=== PATIENT | female | born 1950 | race American Indian/Alaskan Native ===

== ENCOUNTER 2016-09-19 13:02 | Outpatient (CLI) | payer OTHER | END 2016-09-19 13:03 | disposition home or self-care (01) | LOC: ECHO 13:02 | DX: C50.919 Malignant neoplasm of unspecified site of unspecified female breast (principal) | CPT/HCPCS: 93306 ==

== ENCOUNTER 2017-01-15 10:48 | Outpatient (CLI) | payer OTHER | END 2017-01-15 10:49 | disposition home or self-care (01) | LOC: ECHO 10:48 | DX: Z51.11 Encounter for antineoplastic chemotherapy (principal); I08.1 Rheumatic disorders of both mitral and tricuspid valves; I27.2 Other secondary pulmonary hypertension; C50.919 Malignant neoplasm of unspecified site of unspecified female breast | CPT/HCPCS: 93306 ==

== ENCOUNTER 2017-04-18 06:44 | Day surgery (SDC) | payer OTHER ==
[2017-04-18 08:44] LABS: Hematocrit 22.7 % (30.3-42.9); Hemoglobin 7.1 gm/dl (10.1-14.3); Mean Corpuscular HGB Conc 31 % (30-34); Mean Corpuscular Hemoglobin 23 pg (28-32); Mean Corpuscular Volume 73 fl (79-97); Platelet Count 379 K/mm3 (140-440); Red Blood Count 3.09 M/mm3 (3.65-5.03); Red Cell Distribution Width 22.4 % (13.2-15.2); White Blood Count 4.7 K/mm3 (4.5-11.0)
[2017-04-18 08:45] LABS: Basophils % (Auto) 1.3 % (0.0-1.8); Diff Status Complete
[2017-04-18 08:47] LABS: INR 1.07 (0.87-1.13)
[2017-04-18 08:52] LABS: Partial Thromboplastin Time 80.6 Sec. (24.2-36.6)
[2017-04-18] MEDS ORDERED: SUBLIMAZE IV ONE (09:30)
[2017-04-18] MEDS ORDERED: VERSED IV ONE (09:30)
--- NOTE | 2017-04-18 10:41 | Cat Scan Report ---
CT BONE MARROW ASPIRATION History: Breast cancer, anemia. Description of procedure: Informed consent was obtained. Sterile technique was utilized. 1% lidocaine for skin anesthesia. Moderate sedation was accomplished with Versed and fentanyl. The patient was sedated for 15 minutes. Independent cardiorespiratory monitoring by RN. Intraobserver time of [address] guidance, a 10-gauge introducer needle was advanced into the right posterior iliac bone. Four bone marrow aspirations and one 11-gauge bone core were obtained. Pathology was present to handle the samples. No complications. Impression: Successful CT-guided bone marrow aspiration and biopsy.
[2017-04-18] MEDS ORDERED: FLUSH HEPARIN IV ONE (10:57)
[2017-04-18 11:17] LABS: Basophils % (Manual) 0 % (0.0-1.8); Blastocytes % (Manual) 0 %
[2017-04-18 11:18] LABS: Anisocytosis 2+; Hypochromasia 2+; Platelet Estimate Cons
[2017-04-18 11:31] VITALS: BP 110/61
[2017-05-02 14:30] LABS: CYTOMETRY FIRST MARKER SCANNED INTO MED REC; FLOW CYTOMETRY >16 SCANNED INTO MED REC
== END 2017-04-18 11:30 | disposition home or self-care (01) ==
LOC: CATHLABREC 06:44 → EDSTATUS 08:30 → CATHLABREC 11:30
DX: D50.9 Iron deficiency anemia, unspecified (principal); C50.919 Malignant neoplasm of unspecified site of unspecified female breast; Z98.51 Tubal ligation status; Z90.711 Acquired absence of uterus with remaining cervical stump; Z79.01 Long term (current) use of anticoagulants
CPT/HCPCS: 36415; 38221; 77012; 85007; 85025; 85097; 85610; 85730; 88184; 88185; 88230; 88291; 88305; 88342; 99156; G0364; J1642; J2250; J3010; 88161; 88311; 88313

== ENCOUNTER 2017-04-24 09:03 | Outpatient (CLI) | payer OTHER | END 2017-04-24 09:04 | disposition home or self-care (01) | LOC: ECHO 09:03 | DX: I34.0 Nonrheumatic mitral (valve) insufficiency (principal); I27.20 Pulmonary hypertension, unspecified; I51.7 Cardiomegaly; I31.3 Pericardial effusion (noninflammatory); C50.919 Malignant neoplasm of unspecified site of unspecified female breast | CPT/HCPCS: 93306 ==

== ENCOUNTER 2017-07-23 11:32 | Outpatient (CLI) | payer OTHER ==
[2017-07-23 12:37] LABS: Blood Urea Nitrogen 23 mg/dL (7-17)
--- NOTE | 2017-07-24 10:26 | Nuclear Medicine Report ---
BONE SCAN: History: Right breast cancer, initial staging. Comparison: CT chest and abdomen performed the same day. No previous bone scan at this facility. There are multiple areas of abnormal increased radiotracer uptake throughout the thoracic spine, lumbar spine, bilateral ribs, bilateral iliac bones and superior sacrum. These correlate with numerous sclerotic bony lesions seen on CT performed the same day. IMPRESSION: Numerous metastatic lesions are identified throughout the spine, bilateral ribs and pelvis.
--- NOTE | 2017-07-24 11:23 | Cat Scan Report ---
CT CHEST WITH CONTRAST: HISTORY: Breast cancer. COMPARISON: No previous CT at this facility. TECHNIQUE: Helical CT in 1.25mm intervals following IV contrast. Sagittal and coronal reformatted images. FINDINGS: Chest wall: There is diffuse skin thickening throughout both breasts which may be secondary to dermal involvement or radiation changes. There may be focal ulceration in the superior left breast. No abscess. Thyroid gland: 1.5 cm cyst in the right thyroid lobe. No obvious mass or adenopathy. Tracheobronchial tree: Normal. Esophagus: Normal. Heart: Normal. Pericardium: Trace pericardial effusion. No obvious pericardial nodularity or calcification. Mediastinum: No mediastinal mass or bulky mediastinal adenopathy. Lung Cornelius: There are increased interstitial markings throughout both lungs. There is a large area of subpleural consolidation in the lateral right lower lobe and right middle lobe. This appears to represent round atelectasis or chronic atelectasis. No discrete pulmonary nodule or mass. Pleural Spaces: There is a small but complex right pleural effusion with right pleural thickening. No left pleural effusion. No pneumothorax. Musculoskeletal: There are numerous sclerotic bony lesions throughout the thoracic spine, sternum, bilateral ribs, bilateral scapula and bilateral proximal humeri. IMPRESSION: Numerous bony lesions consistent with metastatic disease. Complex right pleural effusion or thickening as described, this may be secondary to neoplasm or radiation changes. Chronic interstitial changes in both lungs with chronic consolidation in the lateral right lung base but no obvious pulmonary nodular mass.
--- NOTE | 2017-07-24 11:28 | Cat Scan Report ---
CT ABDOMEN WITH CONTRAST: HISTORY: Breast cancer. COMPARISON: No previous CT at this facility. TECHNIQUE: Helical CT in 1.25mm intervals following IV contrast. Sagittal and coronal reconstructions. FINDINGS: Liver: Normal. Biliary system: Normal. Pancreas: Normal. Spleen: Normal. Kidneys/ureters/bladder: 3.8 x 2.7 cm simple cyst is noted in the mid left kidney. The kidneys and visualized proximal collecting systems are unremarkable otherwise. Adrenal glands: Normal. Aorta: Normal. Intestines: There is mild fecal retention. No evidence for mass, obstruction or focal inflammation the visualized GI system. Appendix: Not visualized. Ascites: None. Adenopathy: None. Musculoskeletal: Numerous sclerotic bony lesions are identified throughout the lower ribs, all lumbar spine and superior pelvic bones. IMPRESSION: Multiple sclerotic bony lesions consistent with metastatic disease. Unremarkable abdominal viscera. No visceral mass or adenopathy is identified.
== END 2017-07-23 11:33 | disposition home or self-care (01) ==
LOC: NM 11:32
DX: C50.911 Malignant neoplasm of unspecified site of right female breast (principal); N28.1 Cyst of kidney, acquired; I07.1 Rheumatic tricuspid insufficiency; J90 Pleural effusion, not elsewhere classified; K59.00 Constipation, unspecified; M89.9 Disorder of bone, unspecified; E04.1 Nontoxic single thyroid nodule; I72.9 Aneurysm of unspecified site
CPT/HCPCS: 36415; 71260; 74160; 78306; 82565; 84520; 93306; A9503; Q9967

== ENCOUNTER 2017-08-13 08:35 | Outpatient (CLI) | payer OTHER ==
--- NOTE | 2017-08-13 13:50 | Mammography Report ---
BILATERAL DIGITAL DIAGNOSTIC MAMMOGRAM with CAD and BILATERAL BREAST ULTRASOUND: 08/13/17 08:35:00 CLINICAL: Stage IV breast cancer COMPARISON:No recent breast imaging. Comparison mammograms are available from January 2008. FINDINGS: The right breast is shrunken with a central irregular mass which is new compared to the previous mammogram. The mass measures approximately 8.3 x 4.8 x 5.8 cm there are associated suspicious calcifications. The skin of the right breast is thickened. There is a retraction of the right nipple.The left breast is heterogeneously dense. Asymmetries on both views of the left breast is demonstrate satisfactory effacement with spot compression. Benign calcifications of the left breast. Ultrasound of the right breast (including all four quadrants and the retroareolar area) was performed and demonstrated marked edema of the breast with skin thickening and attenuation of the sound. An irregular retroareolar mass at 2 o'clock 4 cm from the nipple measures 3.7 x 1.3 x 2.9 cm. A solid irregular hypoechoic mass at 10 o'clock 7 cm from the nipple measures 9 x 5 x 6 mm. Ultrasound of the right axilla demonstrated no suspicious lymph nodes. Ultrasound of the left breast (including all four quadrants and the retroareolar area) was performed. An irregular solid hypoechoic mass at 12 o'clock 5 cm from the nipple measures 7 x 7 x 4 mm. A suspicious lymph node at 1 o'clock 10 cm from the nipple measures 7 x 7 x 7 mm. Several left axillary lymph nodes are smaller but have minimal central fat. IMPRESSION: 1. A 5-8 cm mass of the right breast with nipple retraction and skin thickening is suspicious for recurrent breast cancer.2. A suspicious 7 mm left breast mass at 12 o'clock 5 cm from the nipple and several suspicious left intramammary lymph nodes. BI-RADS CATEGORY: 6--Known Cancer ACR BI-RADS MAMMOGRAPHIC CODES: 0 = Needs additional imaging evaluation; 1 = Negative; 2 = Benign; 3 = Probably benign; 4 = Suspicious; 5 = Malignant; 6 = Known biopsy-proven malignancy COMMENT: 1. Dense breast tissue, i.e., adenosis, fibrocystic changes, etc., may obscure an underlying neoplasm. 2. Approximately 10% of cancers are not detected with mammography. 3. A negative mammography report should not delay biopsy if a clinically suspicious mass is present. COMMENT: Patient follow-up letters are generated by our [employer] application.
--- NOTE | 2017-08-13 13:57 | Ultrasound Report ---
BILATERAL DIGITAL DIAGNOSTIC MAMMOGRAM with CAD and BILATERAL BREAST ULTRASOUND: 08/13/17 08:35:00 CLINICAL: Stage IV breast cancer COMPARISON:No recent breast imaging. Comparison mammograms are available from January 2008. FINDINGS: The right breast is shrunken with a central irregular mass which is new compared to the previous mammogram. The mass measures approximately 8.3 x 4.8 x 5.8 cm and there are associated suspicious calcifications. The skin of the right breast is thickened. There is a retraction of the right nipple.The left breast is heterogeneously dense. Asymmetries on both views of the left breast is demonstrate satisfactory effacement with spot compression. Benign calcifications of the left breast. Ultrasound of the right breast (including all four quadrants and the retroareolar area) was performed and demonstrated marked edema of the breast with skin thickening and attenuation of the sound. An irregular retroareolar mass at 2 o'clock 4 cm from the nipple measures 3.7 x 1.3 x 2.9 cm. A solid irregular hypoechoic mass at 10 o'clock 7 cm from the nipple measures 9 x 5 x 6 mm. Ultrasound of the right axilla demonstrated no suspicious lymph nodes. Ultrasound of the left breast (including all four quadrants and the retroareolar area) was performed. An irregular solid hypoechoic mass at 12 o'clock 5 cm from the nipple measures 7 x 7 x 4 mm. A suspicious lymph node at 1 o'clock 10 cm from the nipple measures 7 x 7 x 7 mm. Several left axillary lymph nodes are smaller but have minimal central fat. IMPRESSION: 1. A 5-8 cm mass of the right breast with nipple retraction and skin thickening is suspicious for either a primary or recurrent breast cancer. 2. A suspicious 7 mm left breast mass at 12 o'clock 5 cm from the nipple and several suspicious left intramammary lymph nodes. BI-RADS CATEGORY: 6--Known Cancer
== END 2017-08-13 08:36 | disposition home or self-care (01) ==
LOC: MAMMO 08:35
DX: C50.911 Malignant neoplasm of unspecified site of right female breast (principal); N64.89 Other specified disorders of breast; I10 Essential (primary) hypertension; D64.9 Anemia, unspecified
CPT/HCPCS: 77066

== ENCOUNTER 2017-11-05 11:13 | Outpatient (CLI) | payer OTHER ==
--- NOTE | 2017-11-05 13:42 | Cat Scan Report ---
CT NECK WITHOUT CONTRAST: HISTORY: Right neck mass, lymphadenopathy. TECHNIQUE: Helical CT without IV contrast. Sagittal and coronal reformatted images. FINDINGS: A marker is placed in the lateral right neck. Underlying this marker, there is a 7.4 mm lymph node. No bulky cervical adenopathy is identified. The parotid and submandibular glands are normal. The carotid sheaths are intact. There is no evidence of adenopathy within the neck. The thyroid gland is normal. The glottic structures are normal. The airway is patent. Strap musculature is unremarkable. Hyoid bone and thyroid cartilage are intact. 2.0 cm right thyroid lobe nodule is identified which is unchanged and CT chest dated 07/23/17. There is moderate multilevel cervical spondylosis. There are multiple sclerotic bony lesions throughout the cervical spine, medial clavicles and visualized sternum. IMPRESSION: A 7.4 mm lymph node is identified underlying a marker in the right side of the neck. No pathologic cervical adenopathy is detected. Multiple sclerotic bony lesions consistent with metastasis
== END 2017-11-05 11:14 | disposition home or self-care (01) ==
LOC: CT 11:13
DX: M47.892 Other spondylosis, cervical region (principal); M89.8X8 Other specified disorders of bone, other site; D64.9 Anemia, unspecified; I10 Essential (primary) hypertension; Z98.51 Tubal ligation status; Z90.710 Acquired absence of both cervix and uterus
CPT/HCPCS: 70490

== ENCOUNTER 2018-01-01 08:12 | Outpatient (CLI) | payer MEDICARE ==
--- NOTE | 2018-01-03 10:04 | Magnetic Resonance Report ---
BILATERAL BREAST MRI WITHOUT AND WITH CONTRAST: 01/01/18 08:12:00 CLINICAL: Right breast cancer with suspected recurrence. COMPARISON:Bilateral diagnostic mammogram and bilateral breast ultrasound 08/13/17. TECHNIQUE: Axial 1.0-mm T1 without, axial high resolution 2.0-mm T2 and axial 1.0-mm dynamic Vibrant high-resolution postcontrast T1 fat saturation sequences on a 1.5 Emma magnet. The examination was performed with an 8 channel dedicated [place] breast coil. Post processing with CAD and subtraction was performed on an [employer] workstation. 20 cc of Multihance was injected via a left [id number] for the contrast portion of the exam. Consent was obtained prior to the administration of the contrast. FINDINGS: Despite an apparent successful injection of IV contrast via the infusion port, no enhancement is identified within the heart or the breasts. No apparent extravasation of contrast. Right: Pronounced skin thickening of the breast is greatest in the lateral aspect of the breast and measures approximately 1 cm. The thickened skin is contiguous to an irregular lateral mass measuring approximately 8 x 2 x 3.6 cm. The right breast is shrunken compared to the left. Moderate diffuse edema of the right breast on T2. No suspicious right axillary or right internal mammary lymph nodes. Left: Mild nonspecific skin thickening of the breast and moderate diffuse edema of the breasts on T2. No distinct mass. No suspicious left axillary or left internal mammary lymph nodes. IMPRESSION: 1. Suspicious skin thickening of the right breast and a suspicious 8 cm mass of the lateral breast. 2. Bilateral nonspecific diffuse breast edema. 3. This is a very limited examination without adequate contrast enhancement. Recommend repeat examination. If adequate IV access cannot be obtained, recommend CTPET to evaluate for tumor. BI-RADS 0 -- Needs Additional Imaging
== END 2018-01-01 08:13 | disposition home or self-care (01) ==
LOC: SPVIMAG 08:12
PROVIDERS: ATTEND Surgery
DX: C50.411 Malignant neoplasm of upper-outer quadrant of right female breast (principal); N64.89 Other specified disorders of breast
CPT/HCPCS: A9577; C8908; 77059

== ENCOUNTER 2018-01-02 10:08 | Outpatient (CLI) | payer MEDICARE | END 2018-01-02 10:09 | disposition home or self-care (01) | LOC: ECHO 10:08 | PROVIDERS: ATTEND Internal Medicine Hematology & Oncology | DX: I34.0 Nonrheumatic mitral (valve) insufficiency (principal); I07.1 Rheumatic tricuspid insufficiency; I31.3 Pericardial effusion (noninflammatory); I10 Essential (primary) hypertension; M10.9 Gout, unspecified; Z88.0 Allergy status to penicillin; Z88.8 Allergy status to other drugs, medicaments and biological substances; Z90.710 Acquired absence of both cervix and uterus | CPT/HCPCS: 93306 ==

== ENCOUNTER 2018-06-06 06:30 | Outpatient (CLI) | payer MEDICARE ==
--- NOTE | 2018-06-06 10:59 | PET Report ---
PET/CT:06/06/18 06:30:00 CLINICAL: Breast cancer restaging. RADIOPHARMACEUTICAL: 12.0mCi F18-FDG. COMPARISON: 03/21/18 PET/CT TECHNIQUE- Following intravenous injection of F-18 FDG and an approximately 60 minute uptake period, CT and PET images from the mid skull to the upper thighs were acquired with the patient in the fasted state. No contrast was administered. The CT protocol used for this PET CT study is designed for attenuation correction and anatomic localization of PET abnormalities. This tunnel kiln operator CT is not desired to produce and cannot replace, ntiyx-mf-ibv-art diagnostic CT scans with specific imaging protocols for different body parts and indications. Plasma glucose at the time of this test: 81g/dl. The standardized uptake values (SUV) are normalized to patient body weight and indicate the highest activity concentration (SUV max) in a given disease site. FINDINGS: Brain--Physiologic FDG uptake in the visualized regions of the brain. Neck--Physiologic FDG uptake in mucosal structures. No mass or lymphadenopathy. No right supraclavicular lymphadenopathy. Chest--Physiologic FDG uptake in mediastinal blood pool and myocardium. Stable small pericardial effusion. Stable non-FDG avid skin thickening of the right breast and non-FDG opacities of the right breast. Lungs--No abnormal uptake. No pulmonary nodule or mass. Stable bilateral multilobar interstitial lung disease. Pleura/pericardium--No abnormal uptake. Stable non-FDG avid right pleural thickening. No pleural effusion. Thoracic nodes--No abnormal uptake. Hepatobiliary--No abnormal uptake. Liver background SUV mean, as a reference for comparing FDG studies, is 4.0 compared to 3.5 on the last exam. No liver mass. Spleen--No abnormal uptake. Pancreas--No abnormal uptake. Adrenal Glands--No abnormal uptake. Kidneys/Ureters/Bladder--No abnormal uptake. Abdominopelvic Nodes--No abnormal uptake. Bowel/Peritoneum/Mesentery--No abnormal uptake. Pelvic organs--No abnormal uptake. Bones/Soft Tissues--No abnormal uptake. Stable extensive sclerotic skeletal lesions involving the spine, sternum, ribs, right humerus, and bilateral pelvic bones. No new bone lesions. IMPRESSION- Stable non-FDG avid disease.
== END 2018-06-06 06:31 | disposition home or self-care (01) ==
LOC: PET 06:30
PROVIDERS: ATTEND Internal Medicine Hematology & Oncology
DX: C50.911 Malignant neoplasm of unspecified site of right female breast (principal); Z88.4 Allergy status to anesthetic agent; Z88.8 Allergy status to other drugs, medicaments and biological substances
CPT/HCPCS: 78815; 82962; A9552

== ENCOUNTER 2018-08-29 09:32 | Outpatient (CLI) | payer MEDICARE ==
--- NOTE | 2018-09-03 09:18 | PET Report ---
PET/CT:08/29/18 09:32:00 CLINICAL: Breast cancer restaging. RADIOPHARMACEUTICAL: 14.311mCi F18-FDG. COMPARISON: 06/06/18 PET/CT TECHNIQUE- Following intravenous injection of F-18 FDG and an approximately 60 minute uptake period, CT and PET images from the mid skull to the upper thighs were acquired with the patient in the fasted state. No contrast was administered. The CT protocol used for this PET CT study is designed for attenuation correction and anatomic localization of PET abnormalities. This energy director CT is not desired to produce and cannot replace, rbqsv-ja-jec-art diagnostic CT scans with specific imaging protocols for different body parts and indications. Plasma glucose at the time of this test: 76g/dl. The standardized uptake values (SUV) are normalized to patient body weight and indicate the highest activity concentration (SUV max) in a given disease site. FINDINGS: Brain--Physiologic FDG uptake in the visualized regions of the brain. Neck--Physiologic FDG uptake in mucosal structures. No mass or lymphadenopathy is. Chest--Physiologic FDG uptake in mediastinal blood pool and myocardium. Stable non-FDG avid skin thickening of the right breast and non-FDG avid masses of the right breast. Lungs--No abnormal uptake. No pulmonary nodule or mass. Pleura/pericardium--No abnormal uptake. Stable non-FDG evident right pleural thickening and possible small pleural effusion. Thoracic nodes--No abnormal uptake. Hepatobiliary--No abnormal uptake. Liver background SUV mean, as a reference for comparing FDG studies, is 3.7 compared to 4.3 on the last exam. No liver mass. Spleen--No abnormal uptake. Pancreas--No abnormal uptake. Adrenal Glands--No abnormal uptake. Kidneys/Ureters/Bladder--No abnormal uptake. Abdominopelvic Nodes--No abnormal uptake. Bowel/Peritoneum/Mesentery--No abnormal uptake. Pelvic organs--No abnormal uptake. Bones/Soft Tissues--No abnormal uptake. Stable extensive sclerotic skeletal lesions involving the spine, sternum, ribs, right humerus and bilateral pelvic bones. No new lesions. IMPRESSION- Stable non-FDG avid disease.
== END 2018-08-29 09:33 | disposition home or self-care (01) ==
LOC: PET 09:32
PROVIDERS: ATTEND Internal Medicine Hematology & Oncology
DX: C50.911 Malignant neoplasm of unspecified site of right female breast (principal); I10 Essential (primary) hypertension; Z90.710 Acquired absence of both cervix and uterus; Z79.899 Other long term (current) drug therapy; R91.1 Solitary pulmonary nodule
CPT/HCPCS: 78815; 82962; A9552

== ENCOUNTER 2018-11-25 19:00 | Emergency (ER) | payer MEDICARE ==
--- NOTE | 2018-11-25 19:28 | Emergency Department Report ---
ED Neuro Deficit HPI - General Stated Complaint: NEURO ISSUES Time Seen by Provider: 11/25/18 19:02 - History of Present Illness Initial Comments: [facility] Date of service: 11/25/2018 Impression: 67 year old female who presents to the hospital with progressive expressive and receptive aphasia. Symptoms correlate with intracranial mass lesion with vasogenic edema seen on CT brain. Not a tpa candidate due to: Intracranial mass and LSN more than 4.5 hours prior arrival Does not meet LVO screening criteria (no aphasia, neglect, gaze deviation, dense hemiparesis, or visual field deficits on exam), therefore advanced imaging is not indicated. Comments: Door Time: 19:00 [facility] contacted: 18:52 [facility] at bedside: 18:59 NIHSS assessment start time (time the consultation begins): 19:15 Last known well time (LKW): 11:00 Recommendations: Recommend Dexamethasone 10 mg IV now Recommend Neurosurgery consult for intracranial lesion tele monitoring Bedside swallow evaluation HOB less than 30 degrees IV Fluid hydration with NS dvt ppx Consider inpatient neurology consultation Discussed with ED MD Please call with questions --------- CC: Stroke alert History of Present Illness Patient is a 67 year old female with a history of breast CA currently on oral chemotherapy who presents to the ED because of progressive expressive and receptive aphasia. Patient was at her baseline this morning when she woke up and around 11am her noticed some increasing difficulty in her speech. On exam patient was able to move all extremities but was unable to understand what was going on around her or able to answer questions. Diagnostic: CT brain showed a left posterior parietal lesion wtih surrounding vasogenic edema. Exam: Mental Status: Awake, alert, unable to answer questions Naming impaired Speech: receptive and aphasia. Cranial Nerves: Pupils: Equal round and reactive to light Extraocular movements: Intact in all cardinal gaze Ptosis: Absent Visual crawford: Intact to finger counting Facial sensation: Intact to pin and light touch Facial movements: Intact and symmetric Motor Exam: moves all extremities against gravity Sensory Exam: Light touch: Intact NIHSS score: 6 Medical Decision Making: - Extensive number of diagnosis or management options are considered above. - Extensive amount of complex data reviewed. - High risk of complication and/or morbidity or mortality are associated with differential diagnostic considerations above. - There may be Uncertain outcome and increased probability of prolonged functional impairment or high probability of severe prolonged functional impairment associated with some of these differential diagnosis. Medical Data Reviewed: 1.Data reviewed include clinical labs, radiology,Medical Tests; 2.Tests results discussed w/performing or interpreting physician; 3.Obtaining/reviewing old medical records; 4.Obtaining case history from another source; 5.Independent review of image, tracing or specimen. Patient was informed the Neurology Consult would happen via TeleHealth consult by way of interactive audio and video telecommunications and consented to receiving care in this manner. - Related Data Home Medications: Home Medications Medication Instructions Recorded Confirmed Last Taken Aspirin [Aspirin BABY CHEW TAB] 81 mg PO DAILY 08/09/14 12/14/17 04/17/17 81mg Allopurinol 300 mg PO DAILY 04/18/17 12/14/17 04/17/17 300mg Anastrozole (Nf) [Arimidex (Nf)] 1 mg PO DAILY 04/18/17 12/14/17 04/17/17 1mg Calcium Carbonate/Vitamin D3 2 tab PO DAILY 04/18/17 12/14/17 04/17/17 [Calcium 500-Vit D3 400 Tablet] 2 Darbepoetin Erik in Polysorbat 300 mg IM QWEEK 12/14/17 12/14/17 Unknown [Aranesp] Denosumab [Xgeva] 120 mg IM QWEEK 12/14/17 12/14/17 Unknown Trastuzumab [Herceptin] 150 mg IM QWEEK 12/14/17 12/14/17 Unknown Allergies/Adverse Reactions: Allergies Allergy/AdvReac Type Severity Reaction Status Date / Time erythromycin base Allergy Rash Verified 12/14/17 12:12 hydrochlorothiazide Allergy Rash Verified 12/14/17 12:12 lisinopril Allergy Rash Verified 12/14/17 12:12 Tetracyclines Allergy Rash Verified 12/14/17 12:12 ED Review of Systems ROS: Stated complaint: NEURO ISSUES Other details as noted in HPI ED Past Medical Hx - Past Medical History Hx Hypertension: Yes Hx HIV: No Additional medical history: gout - Surgical History Additional Surgical History: partial hysterectomy. - Social History Smoking Status: Never Smoker - Medications Home Medications: Home Medications Medication Instructions Recorded Confirmed Last Taken Type Aspirin [Aspirin BABY CHEW TAB] 81 mg PO DAILY 08/09/14 12/14/17 04/17/17 History 81mg Allopurinol 300 mg PO DAILY 04/18/17 12/14/17 04/17/17 History 300mg Anastrozole (Nf) [Arimidex (Nf)] 1 mg PO DAILY 04/18/17 12/14/17 04/17/17 History 1mg Calcium Carbonate/Vitamin D3 2 tab PO DAILY 04/18/17 12/14/17 04/17/17 History [Calcium 500-Vit D3 400 Tablet] 2 Darbepoetin Erik in Polysorbat 300 mg IM QWEEK 12/14/17 12/14/17 Unknown History [Aranesp] Denosumab [Xgeva] 120 mg IM QWEEK 12/14/17 12/14/17 Unknown History Trastuzumab [Herceptin] 150 mg IM QWEEK 12/14/17 12/14/17 Unknown History ED Neuro Physical Exam - General Suspected Stroke: No - NIHSS Assessment Interval: Baseline 1a. Level of Consciousness: alert/keenly responsive 1b. LOC Questions: answers no questions correctly 1c. LOC Commands: performs no tasks correctly 2. Best Gaze: normal 3. Visual: no visual loss 4. Facial Palsy: normal symmetrical movement 5b. Motor Arm Right: no drift 5a. Motor Arm Left: no drift 6a. Motor Leg Left: no drift 6b. Motor Leg Right: no drift 7. Limb Ataxia: absent 8. Sensory: normal 9. Best Language: severe aphasia 10. Dysarthria: normal 11. Extinction/Inattention: no abnormality Total Score: 6 Stroke Severity: Moderate Stroke Critical care attestation.: If time is entered above; I have spent that time in minutes in the direct care of this critically ill patient, excluding procedure time. ED Disposition Clinical Impression: Brain lesion Disposition: OP ADMIT IP TO THIS HOSP Is pt being admited?: Yes Condition: Stable
--- NOTE | 2018-11-25 19:39 | Emergency Department Report ---
HPI - General Chief Complaint: Neuro Symptoms/Deficit Time Seen by Provider: 11/25/18 19:02 - HPI HPI: 67-year-old female presents to the emergency department via EMS from home with a complaint of some strokelike symptoms or altered mental status. The patient has some difficulty expressing herself and understanding things that are said to her. There are no complaints or evidence of any motor or sensory deficits. The patient herself is a poor historian secondary to her acute condition. Her last known well time was about 11 AM. The patient has a history of breast cancer and it appears that she is still undergoing treatment but may have had a previous mastectomy. The patient's is at bedside and says that they were on different levels of the house this morning and by the time he checked on her she had the aforementioned symptoms but that she had woken up this morning at her normal baseline status. ED Past Medical Hx - Past Medical History Hx Hypertension: Yes Hx of Cancer: Yes (Breast) Hx HIV: No Additional medical history: gout - Surgical History Additional Surgical History: partial hysterectomy. - Social History Smoking Status: Never Smoker - Medications Home Medications: Home Medications Medication Instructions Recorded Confirmed Last Taken Type Aspirin [Aspirin BABY CHEW TAB] 81 mg PO DAILY 08/09/14 12/14/17 04/17/17 His tory 81mg Allopurinol 300 mg PO DAILY 04/18/17 12/14/17 04/17/17 History 300mg Anastrozole (Nf) [Arimidex (Nf)] 1 mg PO DAILY 04/18/17 12/14/17 04/17/17 History 1mg Calcium Carbonate/Vitamin D3 2 tab PO DAILY 04/18/17 12/14/17 04/17/17 History [Calcium 500-Vit D3 400 Tablet] 2 Darbepoetin Erik in Polysorbat 300 mg IM QWEEK 12/14/17 12/14/17 Unknown History [Aranesp] Denosumab [Xgeva] 120 mg IM QWEEK 12/14/17 12/14/17 Unknown History Trastuzumab [Herceptin] 150 mg IM QWEEK 12/14/17 12/14/17 Unknown History ED Review of Systems ROS: Stated complaint: NEURO ISSUES Other details as noted in HPI Comment: Unobtainable due to pts medical conditions Neurological: confusion Physical Exam - Physical Exam Vital Signs: Vital Signs 11/25/18 19:22 Temperature 98.3 F Pulse Rate 55 L Respiratory 18 Rate Blood Pressure 129/68 [Left] Physical Exam: GENERAL: The patient is well-developed well-nourished. HENT: Normocephalic. Atraumatic. Patient has moist mucous membranes. EYES: Extraocular motions are intact. Pupils equal reactive to light bilaterally. NECK: Supple. Trachea is midline. CHEST/LUNGS: Clear to auscultation. There is no respiratory distress noted. HEART/CARDIOVASCULAR: Regular. There is no tachycardia. There is no murmur. ABDOMEN: Abdomen is soft, nontender. Patient has normal bowel sounds. There is no abdominal distention. SKIN: Skin is warm and dry. NEURO: The patient is awake and cooperative. No motor or sensory deficits. She has both receptive and expressive aphasia. The patient has normal speech. MUSCULOSKELETAL: There is no tenderness or deformity. There is no limitation range of motion. There is no evidence of acute injury. ED Course Vital Signs 11/25/18 19:22 Temperature 98.3 F Pulse Rate 55 L Respiratory 18 Rate Blood Pressure 129/68 [Left] - Consultations Consultation #1: Upon return from CT, the patient was seen by the telemedicine neurologist, Dr Urban. The neurologist evaluated the patient and feels that the CT scan of the head shows a concern for an area of intracranial mass with some vasogenic edema and possible small mass effect. For this reason she is not a TPA candidate and she recommends the patient get admitted somewhere that has neurosurgery available. 11/25/18 19:38 Consultation #2: When I got the CT report back regarding this patient's finding of a left parietal 3 cm mass with moderate vasogenic edema, I contacted [facility] to speak with neurosurgery. I was able to speak with a Dr. Ruvalcaba that he did not feel that they had any beds available. He graciously contacted a colleague at [facility]. I spoke with a neurosurgeon, Dr Sheldon, who has accepted the patient for transfer to his service. He has asked for the patient received 10 mg of Decadron. 11/25/18 21:26 ED Medical Decision Making - Lab Data Result diagrams: 11/25/18 19:42 11/25/18 19:42 - EKG Data -: EKG Interpreted by Me EKG shows normal: sinus rhythm, axis, intervals, QRS complexes, ST-T waves Rate: bradycardia (55 bpm) - EKG Data When compared to previous EKG there are: previous EKG unavailable Interpretation: normal EKG (with mild bradycardia at 55 bpm) - Radiology Data Radiology results: report reviewed CT HEAD WITHOUT CONTRAST INDICATION / CLINICAL INFORMATION: MAIN: Stroke symptoms;CODE STROKE. History of breast cancer. TECHNIQUE: All CT scans at this location are performed using CT dose reduction for ALARA by means of automated exposure control. COMPARISON: None available. FINDINGS: HEMORRHAGE: No evidence of intracranial hemorrhage or extra-axial fluid collection. EXTRA-AXIAL SPACES: There is effacement of cortical sulci along the lateral convexity and vertex of the left cerebral hemisphere near the frontoparietal junction secondary to mass effect. Cortical sulci, sylvian fissures and basilar cisterns have an otherwise unremarkable appearance. VENTRICULAR SYSTEM: There is effacement of the posterior body and atria of the left lateral ventricle secondary to mass effect. Incidental note is made of persistence of the cava septum pellucidum and cavum vergae. The ventricular system is of otherwise normal size and configuration. CEREBRAL PARENCHYMA: There is a 3 cm diameter mass. This intra-axial lesion is l ocated in the left parietal lobe. This is of increased attenuation compared to adjacent brain paren chyma. There is evidence of calcification within the lesion. Moderate vasogenic edema is seen in the adjacent brain parenchyma. Given the history of breast cancer this most likely represents a metastatic deposit. Because of its subcortical location in the presence of calcification the possibility of oligodendroglioma could also be considered. Further evaluation to include MRI brain without and with intravenous contrast is advised. MIDLINE SHIFT OR HERNIATION: There is no indication of midline shift. There is no evidence of transfalcine herniation or uncal herniation. CEREBELLUM / BRAINSTEM: Brainstem and cerebellum have an unremarkable appearance. INTRACRANIAL VESSELS:No abnormalities are identified on this noncontrast head CT. ORBITS: visualized portions of the orbits have an unremarkable appearance. SOFT TISSUES of HEAD: No significant abnormality. CALVARIUM: Evaluation of bone windows reveals no abnormalities. PARANASAL SINUSES / MASTOID AIR CELLS: Paranasal sinuses are free from inflammatory mucosal disease. Mastoid air cells are normally pneumatized. IMPRESSION: 1. There is a 3 cm mass in the left parietal lobe with associated moderate vasogenic edema. Differential diagnosis includes metastatic disease to brain given the patient's history of breast cancer. The subcortical location of the lesion in the presence of tumoral calcifications sleeve open the possibility of oligodendroglioma. Further evaluation with MRI brain without and with contrast is advised. - Medical Decision Making Patient presents to the emergency department as a code stroke secondary to what appears to be some receptive and expressive aphasia. Because of this she is unable to identify some objects and answer all questions appropriately and she received an NIH stroke scale of 6 from the neurologist. She had a stat CT scan of the head that showed a left-sided parietal 3 cm mass with surrounding vasogenic edema. Along with her breast cancer history, this is most likely a metastatic mass. As the patient needs a neurosurgical evaluation, and we do not have this specialty at our facility, the patient will be transferred out and was accepted at [facility]. Vital signs stable throughout her ED course. - Differential Diagnosis CVA, Dementia, Malignancy, Dysrythmia Critical Care Time: Yes Critical care time in (mins) excluding proc time.: 35 Critical care attestation.: If time is entered above; I have spent that time in minutes in the direct care of this critically ill patient, excluding procedure time. Critical care time was spent on this patient and doing her initial evaluation, multiple re- evaluations, ordering an interpretation of labs and imaging, discussion with multiple neurosurgeons, discussions with the patient and her family Critical Care Time: 35 minutes ED Disposition Clinical Impression: Brain lesion, Vasogenic brain edema, Aphasia Disposition: OP ADMIT IP TO THIS HOSP Is pt being admited?: Yes Condition: Serious Referrals: JOSE NERI MD [Primary Care Provider] - 3-5 Days Time of Disposition: 00:49
--- NOTE | 2018-11-25 19:48 | Cat Scan Report ---
CT HEAD WITHOUT CONTRAST INDICATION / CLINICAL INFORMATION: MAIN: Stroke symptoms;CODE STROKE. History of breast cancer. TECHNIQUE: All CT scans at this location are performed using CT dose reduction for ALARA by means of automated e xposure control. COMPARISON: None available. FINDINGS: HEMORRHAGE: No evidence of intracranial hemorrhage or extra-axial fluid collection. EXTRA-AXIAL SPACES: There is effacement of cortical sulci along the lateral convexity and vertex of t he left cerebral hemisphere near the frontoparietal junction secondary to mass effect. Cortical sulci , sylvian fissures and basilar cisterns have an otherwise unremarkable appearance. VENTRICULAR SYSTEM: There is effacement of the posterior body and atria of the left lateral ventricle secondary to mass effect. Incidental note is made of persistence of the cava septum pellucidum and c avum vergae. The ventricular system is of otherwise normal size and configuration. CEREBRAL PARENCHYMA: There is a 3 cm diameter mass. This intra-axial lesion is located in the left pa rietal lobe. This is of increased attenuation compared to adjacent brain parenchyma. There is evidenc e of calcification within the lesion. Moderate vasogenic edema is seen in the adjacent brain parenchy ma. Given the history of breast cancer this most likely represents a metastatic deposit. Because of i ts subcortical location in the presence of calcification the possibility of oligodendroglioma could a lso be considered. Further evaluation to include MRI brain without and with intravenous contrast is a dvised. MIDLINE SHIFT OR HERNIATION: There is no indication of midline shift. There is no evidence of transfa lcine herniation or uncal herniation. CEREBELLUM / BRAINSTEM: Brainstem and cerebellum have an unremarkable appearance. INTRACRANIAL VESSELS:No abnormalities are identified on this noncontrast head CT. ORBITS: visualized portions of the orbits have an unremarkable appearance. SOFT TISSUES of HEAD: No significant abnormality. CALVARIUM: Evaluation of bone windows reveals no abnormalities. PARANASAL SINUSES / MASTOID AIR CELLS: Paranasal sinuses are free from inflammatory mucosal disease. Mastoid air cells are normally pneumatized. IMPRESSION: 1. There is a 3 cm mass in the left parietal lobe with associated moderate vasogenic edema. Different ial diagnosis includes metastatic disease to brain given the patient's history of breast cancer. The subcortical location of the lesion in the presence of tumoral calcifications sleeve open the possibil ity of oligodendroglioma. Further evaluation with MRI brain without and with contrast is advised. Signer Name: Ethan Sidhu MD Signed: 11/25/2018 7:44 PM Workstation Name: [id number]
[2018-11-25 19:52] LABS: Basophils # (Auto) 0.1 K/mm3 (0.0-0.1); Basophils % (Auto) 0.9 % (0.0-1.8); Eosinophils # (Auto) 0.2 K/mm3 (0.0-0.4); Eosinophils % (Auto) 2.1 % (0.0-4.3); Hematocrit 36.7 % (30.3-42.9); Lymphocytes # (Auto) 2.3 K/mm3 (1.2-5.4); Lymphocytes % (Auto) 30.1 % (13.4-35.0); Mean Corpuscular HGB Conc 33 % (30-34); Mean Corpuscular Volume 83 fl (79-97); Monocytes # (Auto) 0.5 K/mm3 (0.0-0.8); Monocytes % (Auto) 6.8 % (0.0-7.3); Platelet Count 255 K/mm3 (140-440); Red Blood Count 4.44 M/mm3 (3.65-5.03); Red Cell Distribution Width 16.5 % (13.2-15.2)
[2018-11-25 20:01] LABS: INR 1.04 (0.87-1.13)
[2018-11-25 20:08] LABS: Albumin 4.1 g/dL (3.9-5); BUN/Creatinine Ratio 19; Blood Urea Nitrogen 21 mg/dL (7-17); Calcium 9.3 mg/dL (8.4-10.2); Hemolysis Index 96
[2018-11-25 20:33] LABS: Creatine Kinase MB < 1.0 ng/mL (0.0-4.0)
[2018-11-25 20:34] LABS: Alanine Aminotransferase 10 units/L (7-56)
[2018-11-25] MEDS ORDERED: DECADRON IV ONE (20:55)
[2018-11-25 22:34] VITALS: BP 114/68
== END 2018-11-25 23:13 | disposition admitted as inpatient to this hospital (09) ==
LOC: ED 19:00
DX: G93.6 Cerebral edema (principal); G93.9 Disorder of brain, unspecified; I10 Essential (primary) hypertension; M10.9 Gout, unspecified; Z85.3 Personal history of malignant neoplasm of breast; Z90.711 Acquired absence of uterus with remaining cervical stump; Z79.82 Long term (current) use of aspirin; Z79.899 Other long term (current) drug therapy; Z88.1 Allergy status to other antibiotic agents; Z88.8 Allergy status to other drugs, medicaments and biological substances
CPT/HCPCS: 36415; 70450; 80053; 82550; 82553; 82962; 84484; 85025; 85610; 85730; 93005; 93010; 96374; 99291; J1100; 80320; G0480

== ENCOUNTER 2019-01-02 11:07 | Outpatient (CLI) | payer MEDICARE ==
--- NOTE | 2019-01-02 14:41 | PET Report ---
PET/CT HISTORY: C50.911. Restaging of right breast cancer TECHNIQUE: The patient's fasting blood glucose was 116. The patient weighed 280 lbs. The patient w as injected with 14.0 mCi of FDG in the left hand at 1146 hours and imaging was started at 1227. The patient was imaged from the skull base to the thighs. COMPARISON: 06/06/2018 FINDINGS: FDG findings: The previously described numerous sclerotic bony lesions throughout the axial skeleton appear unchanged in size and number however many of these bony lesions now demonstrate hypermetaboli c activity. For instance, a T8 lesion now demonstrates a max SUV of 6.8. An L4 lesion demonstrates a maximum SUV of 9.7. A left sacral lesion demonstrates a max SUV of 7.0. All of these lesions were hyp ometabolic on the comparison study. Mean liver SUV measures 4.6. Non-FDG findings: The imaged brain is unremarkable. No cervical mass or adenopathy. There is skin thickening throughout the right breast but no new or discrete mass is identified. No in trathoracic or extrathoracic adenopathy. Mild cardiomegaly is stable. No suspicious pulmonary nodule or mass. Chronic pleural parenchymal changes in the right lung may be related to radiation therapy. Normal liver, biliary system, pancreas, spleen, adrenal glands and bowel loops. Pelvic viscera are unremarkable. Hysterectomy changes are evident. No abdominal or pelvic adenopathy is detected. IMPRESSION: Progression of disease is demonstrated since 06/06/2018 exam. There are numerous sclerotic bony lesions which appear stable in size and number although many of the lesions now demonstrate hyp ermetabolic activity. No new visceral mass or adenopathy. Signer Name: Wu Vernon Jr, MD Signed: 01/02/2019 2:37 PM Workstation Name: [id number]
== END 2019-01-02 11:08 | disposition home or self-care (01) ==
LOC: PET 11:07
PROVIDERS: ATTEND Internal Medicine Hematology & Oncology
DX: C50.411 Malignant neoplasm of upper-outer quadrant of right female breast (principal); I11.9 Hypertensive heart disease without heart failure; Z90.710 Acquired absence of both cervix and uterus; R73.09 Other abnormal glucose
CPT/HCPCS: 78815; 82962; A9552

== ENCOUNTER 2019-01-10 11:11 | Outpatient (CLI) | payer MEDICARE ==
--- NOTE | 2019-01-10 12:42 | Vascular Lab Report ---
RIGHT UPPER EXTREMITY VENOUS DOPPLER ULTRASOUND HISTORY: Left upper extremity swelling and pain for 3 days COMPARISON: None. TECHNIQUE: Grayscale, color and spectral Doppler imaging of the venous system of the right upper extr emity was performed. FINDINGS: Internal Jugular Vein: Normal grayscale appearance and flow. Subclavian Vein: Normal grayscale appearance and flow. Axillary Vein: Normal venous flow, compressibility and augmentation. Brachial vein: Normal venous flow, compressibility and augmentation. Basilic vein: Normal venous flow, compressibility and augmentation. Cephalic vein: Normal venous flow, compressibility and augmentation. Additional Findings: None. IMPRESSION: 1. No sonographic evidence of deep venous thrombosis in the right upper extremity. Signer Name: Wu Vernon Jr, MD Signed: 01/10/2019 12:37 PM Workstation Name: [id number]
== END 2019-01-10 11:12 | disposition home or self-care (01) ==
LOC: VAS 11:11
PROVIDERS: ATTEND Internal Medicine Hematology & Oncology
DX: R22.1 Localized swelling, mass and lump, neck (principal); I10 Essential (primary) hypertension; Z90.710 Acquired absence of both cervix and uterus

== ENCOUNTER 2019-05-29 06:56 | Outpatient (CLI) | payer MEDICARE ==
--- NOTE | 2019-05-29 10:52 | PET Report ---
. PET/CT HISTORY: C50.911. Restaging of right breast cancer TECHNIQUE: The patient's fasting blood glucose was 101. The patient weighed 210 lbs. The patient w as injected with 14.3 mCi of FDG in the Port-A-Cath at 0801 hours and imaging was started at 0858 mona rs. The patient was imaged from the skull base to the thighs. All CT scans at this location are perf ormed using CT dose reduction for ALARA by means of automated exposure control. Images were reviewed on a workstation. COMPARISON: 01/02/2019 FINDINGS: IMAGED BRAIN: [Physiologic FDG uptake] NECK: [Physiologic FDG uptake] CHEST WALL: [Physiologic FDG uptake]. There is persistent skin thickening throughout the right breas t. No obvious recurrent mass. MEDIASTINUM: [There is a new soft tissue density ovoid lesion in the anterior mediastinum measuring 3.0 x 1.6 cm in axial plane. Max SUV measures 17.2] LUNGS: [Physiologic FDG uptake]. Chronic interstitial changes in both lungs, right greater than left are stable. Subpleural scarring in the right lung may be secondary to radiation changes. No suspicio us pulmonary nodule or mass. HEPATOBILIARY: [Liver SUV measures 4.2 as opposed to 4.8 on the previous exam. Liver uptake is sligh tly heterogeneous but no focal mass is demonstrated on the noncontrast CT images.] PANCREAS: [Physiologic FDG uptake SPLEEN: [Physiologic FDG uptake] KIDNEYS/BLADDER: [Physiologic FDG uptake] ADRENAL GLANDS: [Physiologic FDG uptake] GI/MESENTERY: [Physiologic FDG uptake] PELVIC VISCERA: [Physiologic FDG uptake] LYMPH NODES: [Physiologic FDG uptake] OSSEOUS STRUCTURES: [Numerous sclerotic bony lesions are again noted and appear stable in size and n umber. There are 2 areas of intense hypermetabolic activity which have developed in the lumbar spine. Focal uptake in the L3 vertebral body has developed with max SUV measuring 14.0. Areas of abnormal i ncreased uptake in the posterior elements of L4 have also developed with max SUV measuring 9.9. The remaining bony lesions are hypometabolic are isometabolic. ADDITIONAL FINDINGS: [None] IMPRESSION: Mild progression of disease is demonstrated since the previous exam. Abnormal soft tissue mass or lym ph node has developed in the anterior mediastinum of the chest with max SUV measuring 17.2. Abnormal bony uptake has developed involving L3 and L4 as outlined above. The remaining bony metastasis are hy pometabolic on PET imaging. Signer Name: Wu Vernon Jr, MD Signed: 05/29/2019 10:48 AM Workstation Name: [id number]
== END 2019-05-29 06:57 | disposition home or self-care (01) ==
LOC: PET 06:56
PROVIDERS: ATTEND Internal Medicine Hematology & Oncology
DX: T82.598A Other mechanical complication of other cardiac and vascular devices and implants, initial encounter (principal); C50.411 Malignant neoplasm of upper-outer quadrant of right female breast; J98.4 Other disorders of lung; Z79.899 Other long term (current) drug therapy; C50.911 Malignant neoplasm of unspecified site of right female breast; D63.0 Anemia in neoplastic disease; Y83.8 Other surgical procedures as the cause of abnormal reaction of the patient, or of later complication, without mention of misadventure at the time of the procedure; Y92.89 Other specified places as the place of occurrence of the external cause
CPT/HCPCS: 78815; 82962; A9552; J1642